=== PATIENT | female | born 1930 | race Hispanic/Latino ===

== ENCOUNTER 2018-10-06 09:42 | Inpatient (IN) | payer OTHER, SELFPAY ==
[2018-10-06] MEDS ORDERED: NA CHLORIDE 0.9% 1,000 ML ONE (10:19)
[2018-10-06] MEDS ORDERED: ONDANSETRON 4 MG/2 ML VIAL ONE (10:19)
[2018-10-06 10:51] LABS: Absolute Lymphocytes (CBC) 0.2 K/uL (0.7-4.9); Absolute Monocytes 0.6 K/uL (0.1-1.3); Absolute Neutrophil 11.4 K/uL (1.8-8.0); Basophils % 0.2 % (0-1.3); Hematocrit 43.2 % (36.0-45.0); Lymphocytes % 1.6 % (15.3-44.8); MPV 12.3 fL (7.6-11.3); Monocytes % 4.8 % (3.3-12.3)
[2018-10-06 11:11] LABS: Albumin 3.9 g/dL (3.4-5.0); Bilirubin Direct 0.3 mg/dL (0-0.2); Bilirubin Total 0.8 mg/dL (0.2-1.0); Potassium 3.1 mmol/L (3.5-5.1); Protein, Total 7.3 g/dL (6.4-8.2)
[2018-10-06 11:44] LABS: Blood Morphology Comment NOT SEEN (NOT SEEN); Platelet Estimate ADEQ
[2018-10-06 11:45] LABS: Platelets, Giant FEW
--- NOTE | 2018-10-06 11:49 | RAD REPORT ---
EXAM DESCRIPTION: CT - Abdomen Pelvis W Contrast - 10/06/2018 11:30 am CLINICAL HISTORY: Abdominal pain, nausea and vomiting for 2 days, prior cholecystectomy, appendectom y, hysterectomy and partial colectomy COMPARISON: None. TECHNIQUE: Biphasic, helical CT imaging of the abdomen and pelvis was performed following 100 ml non -ionic IV contrast. Oral contrast was given. All CT scans are performed using dose optimization technique as appropriate and may include automated exposure control or mA/KV adjustment according to patient size. FINDINGS: No suspicious findings in the lung bases. The liver, spleen, and pancreas show no suspicious findings. Gallbladder is absent. Mild dilatation o f biliary tree within normal limits for a post cholecystectomy patient. Renal function is symmetric. No pyelonephritis, suspicious renal mass or other acute renal parenchyma l process seen. Both renal pelves are dilated. Function is not delayed in these are probably normal v ariant extrarenal pelves or congenital UPJ obstructions. These are not regarded as significant in the acute setting. Ureters do not appear to be dilated. Urinary bladder is distended. Hyperdensity along the left posterior wall of the bladder is probably bladder calculi. Contrast is possible if the heath ent was administered a test dosage. No wall thickening or mass of the bladder. No adrenal abnormaliti es. Fluid-filled nondilated stomach noted. No gastric wall thickening or mass. Multiple dilated small bow el loops are present up to 3.2 cm in diameter. There is an abrupt transition in the posterior floor t he pelvis. At the transition site there is no discrete mass identifiable. Internal hernia or more lik pavan adhesions would be the etiology. Distal to the transition point the small bowel is fully decompre ssed. Air and stool are present throughout the colon. No acute colon process seen. No findings to inocencia vate probability of ischemic bowel. No free air or pneumatosis. Small quantity of reactive free fluid is seen. No bulky lymphadenopathy or suspicious soft tissue mass. Prominent disc and bony degenerative changes are present with right convex rotoscoliosis. IMPRESSION: Mechanical small bowel obstruction pattern with an abrupt transition in the mid small kamilah wel along the posterior pelvic floor. No mass at the transition site. Adhesion would be the most likely etiology. No free air, abscess or surgically emergent finding. Patient does have a small quantity of reactive free intraperitoneal fluid.
--- NOTE | 2018-10-06 12:13 | EDPHYS ---
Physician Documentation [facility] Name: Chintan Chase Age: 88 yrs Sex: Female : 1930 Arrival Date: 10/06/2018 Time: 09:46 Bed 15 Private MD: Out, [facility] ED Physician Elliott Hawkins HPI: 10/06 10:09 This 88 yrs old Female presents to ER via Wheelchair with complaints of Abd Pain > 50 kb y/o, Vomiting. 10:09 The patient presents with abdominal pain that is diffuse. Onset: The symptoms/episode kb began/occurred yesterday. The symptoms do not radiate. Associated signs and symptoms: Pertinent positives: nausea and vomiting, fever, Pertinent negatives: anorexia, blood in stools, chest pain, constipation, diarrhea, dysuria, headache, hematuria, nausea, palpitations, shortness of breath, vaginal discharge, vomiting blood. The symptoms are described as constant. Modifying factors: The symptoms are alleviated by nothing, the symptoms are aggravated by nothing. Severity of pain: At its worst the pain was moderate in the emergency department the pain is unchanged. The patient has experienced a previous episode. The patient has not recently seen a physician. Pt reports diffuse abd pain that started yesterday. Fever yesterday, vomiting this morning. Historical: - Allergies: 10:00 ethylenediamine (bulk); rb1 10:00 sulfamethoxazole (bulk); rb1 - Home Meds: 10:00 diazepam 2 mg Oral tab 1 tab 2 times per day [Active]; cyproheptadine 4 mg Oral tab 1 rb1 tab 2 times per day [Active]; Symbicort 160-4.5 mcg/actuation inhalation HFAA 2 puffs 2 times per day [Active]; 10:00 venlafaxine 37.5 mg oral cp24 1 cap once daily [Active]; celecoxib 100 mg Oral cap 1 rb1 cap once daily [Active]; losartan 25 mg oral tab 1 tab once daily [Active]; - PMHx: 10:02 Diverticulitis; Asthma; Hypertension; High Cholesterol; hb 10:00 COPD; Hyperlipidemia; rb1 - PSHx: 10:02 Cholecystectomy; Appendectomy; Hysterectomy; Partial Colectomy; hb - Immunization history:: Adult Immunizations up to date. - Social history:: Smoking status: Patient/guardian denies using tobacco. - Ebola Screening: : No symptoms or risks identified at this time. ROS: 10:11 ENT: Negative for injury, pain, and discharge, Neck: Negative for injury, pain, and kb swelling, Cardiovascular: Negative for chest pain, palpitations, and edema, Respiratory: Negative for shortness of breath, cough, wheezing, and pleuritic chest pain, MS/Extremity: Negative for injury and deformity, Skin: Negative for injury, rash, and discoloration, Neuro: Negative for headache, weakness, numbness, tingling, and seizure. 10:11 Constitutional: Positive for fever, Negative for body aches, chills, fatigue, malaise, poor PO intake, weight loss. 10:11 Abdomen/GI: Positive for abdominal pain, nausea and vomiting, Negative for diarrhea, constipation. Exam: 10:11 Constitutional: This is a well developed, well nourished patient who is awake, alert, kb and in no acute distress. Head/Face: Normocephalic, atraumatic. ENT: Nares patent. No nasal discharge, no septal abnormalities noted. Tympanic membranes are normal and external auditory canals are clear. Oropharynx with no redness, swelling, or masses, exudates, or evidence of obstruction, uvula midline. Mucous membranes moist. Neck: Trachea midline, no thyromegaly or masses palpated, and no cervical lymphadenopathy. Supple, full range of motion without nuchal rigidity, or vertebral point tenderness. No Meningismus. Chest/axilla: Normal chest wall appearance and motion. Nontender with no deformity. No lesions are appreciated. Cardiovascular: Regular rate and rhythm with a normal S1 and S2. No gallops, murmurs, or rubs. Normal PMI, no JVD. No pulse deficits. Respiratory: Lungs have equal breath sounds bilaterally, clear to auscultation and percussion. No rales, rhonchi or wheezes noted. No increased work of breathing, no retractions or nasal flaring. Skin: Warm, dry with normal turgor. Normal color with no rashes, no lesions, and no evidence of cellulitis. MS/ Extremity: Pulses equal, no cyanosis. Neurovascular intact. Full, normal range of motion. Neuro: Awake and alert, GCS 15, oriented to person, place, time, and situation. Cranial nerves II-XII grossly intact. Motor strength 5/5 in all extremities. Sensory grossly intact. Cerebellar exam normal. Normal gait. 10:11 Abdomen/GI: Inspection: abdomen appears normal, Bowel sounds: normal, in all quadrants, Palpation: soft, in all quadrants, nontender, in the right lower quadrant, mild abdominal tenderness, in the right upper quadrant and left upper quadrant, moderate abdominal tenderness, in the left lower quadrant. Vital Signs: 10:00 BP 163 / 80; Pulse 83; Resp 16; Temp 98.1; Pulse Ox 100% on R/A; Pain 10/10; hb 11:12 BP 147 / 62; Pulse 78; Resp 22; Temp 97.7; Pulse Ox 100% ; hs1 12:10 BP 147 / 87; Pulse 86; Resp 20; Pulse Ox 100% on R/A; rb1 12:30 BP 147 / 87; Pulse 82; Resp 20; Temp 97.7; Pulse Ox 100% ; hs1 13:30 BP 156 / 76; Pulse 86; Resp 19; Pulse Ox 99% on R/A; rb1 14:20 BP 156 / 78; Pulse 84; Resp 20; Pulse Ox 100% on R/A; rb1 MDM: 10:01 Patient medically screened. kb 10:10 Data reviewed: vital signs, nurses notes. Data interpreted: Pulse oximetry: on room air kb is 100 %. Interpretation: normal. 12:08 Counseling: I had a detailed discussion with the patient and/or guardian regarding: the kb historical points, exam findings, and any diagnostic results supporting the discharge/admit diagnosis, lab results, radiology results, the need for further work-up and treatment in the hospital. Physician consultation: Antonio Chase MD was contacted at 12:08, regarding consult, patient's condition, and will see patient in inpatient room. 12:08 Physician consultation: Brianna Gregg MD was contacted at 12:11, regarding admission, kb to the medical/surgical unit. patient's condition, and will see patient in ED, shortly. 10/06 10:05 Order name: Basic Metabolic Panel; Complete Time: 11:23 kb 10/06 10:05 Order name: CBC with Diff; Complete Time: 11:48 kb 10/06 10:05 Order name: Hepatic Function; Complete Time: 11:23 kb 10/06 10:05 Order name: Lipase; Complete Time: 11:23 kb 10/06 10:06 Order name: CT Abd/Pelvis - W/Contrast; Complete Time: 11:53 kb 10/06 11:44 Order name: Manual Differential; Complete Time: 11:48 EDMD 10/06 10:05 Order name: IV Saline Lock; Complete Time: 10:47 kb 10/06 12:14 Order name: CONS Physician Consult EDMD 10/06 10:05 Order name: Labs collected and sent; Complete Time: 10:47 kb 10/06 12:08 Order name: NG Tube; Complete Time: 13:36 kb Administered Medications: 10:35 Drug: NS 0.9% 1000 ml Route: IV; Rate: 1000 ml; Site: right forearm; rb1 11:54 Follow up: IV Status: Completed infusion rb1 10:35 Drug: Zofran 4 mg Route: IVP; Site: right forearm; rb1 10:50 Follow up: Response: No adverse reaction; Nausea is decreased rb1 12:15 Drug: morphine 2 mg Route: IVP; Site: right forearm; rb1 12:30 Follow up: Response: No adverse reaction; Pain is decreased rb1 12:15 Drug: Flagyl 500 mg Volume: 100 ml; Route: IVPB; Rate: 200 ml/hr; Infused Over: 30 rb1 mins; Site: left antecubital; 13:18 Follow up: Response: No adverse reaction; IV Status: Completed infusion rb1 12:18 Drug: NS 0.9% with KCl 20 mEq/L 1000 ml Route: IV; Rate: 100 ml/hr; Site: right forearm;rb1 14:27 Follow up: IV Status: Infusion continued upon admission rb1 13:20 Drug: Cipro 400 mg Volume: 200 ml; Route: IVPB; Infused Over: 60 mins; Site: left rb1 antecubital; 14:27 Follow up: Response: No adverse reaction; IV Status: Infusion continued upon admission rb1 Disposition: 10/07 07:20 Co-signature as Attending Physician, Elliott Hawkins MD I agree with the assessment and kdr plan of care. Disposition: 10/06/18 12:12 Hospitalization ordered by Brianna Gregg for Inpatient Admission. Preliminary diagnosis is Small Bowel Obstruction. - Bed requested for Telemetry/MedSurg (Inpatient). - Status is Inpatient Admission. rb1 - Condition is Stable. - Problem is new. - Symptoms are unchanged. UTI on Admission? No Signatures: Dispatcher [employer] EDMD Richelle Wiseman FNP-C WORM PACKER-Ckb Chelsea Barrios, RN RN dw Elliott Hawkins MD MD [facility] Linn Roberts, RN RN rb1 Angelica Acosta, MELODY RN Corrections: (The following items were deleted from the chart) 10/06 12:09 10:02 Allergies: No Known Allergies; rb1 12:51 12:12 Hospitalization Ordered by Brianna Gregg MD for Inpatient Admission. Preliminary dw diagnosis is Small Bowel Obstruction. Bed requested for Telemetry/MedSurg (Inpatient). Status is Inpatient Admission. Condition is Stable. Problem is new. Symptoms are unchanged. UTI on Admission? No. kb 14:27 12:51 10/06/2018 12:12 Hospitalization Ordered by Brianna Gregg MD for Inpatient rb1 Admission. Preliminary diagnosis is Small Bowel Obstruction. Bed requested for Telemetry/MedSurg (Inpatient). Status is Inpatient Admission. Condition is Stable. Problem is new. Symptoms are unchanged. UTI on Admission? No. dw
--- NOTE | 2018-10-06 12:13 | ER ---
Nurse's Notes [facility] Name: Chintan Chase Age: 88 yrs Sex: Female : 1930 Arrival Date: 10/06/2018 Time: 09:46 Bed 15 Private MD: Out, [facility] Diagnosis: Small Bowel Obstruction Presentation: 10/06 09:55 Initial Sepsis Screen: Does the patient meet any 2 criteria? No. Patient's initial rb1 sepsis screen is negative. Does the patient have a suspected source of infection? No. Patient's initial sepsis screen is negative. 10:00 Presenting complaint: N/V/D and upper abdominal pain 10 x 2 days. Transition of hb care: patient was not received from another setting of care. Onset of symptoms was October 05, 2018. Risk Assessment: Do you want to hurt yourself or someone else? Patient reports no desire to harm self or others. Care prior to arrival: None. 10:00 Method Of Arrival: Wheelchair hb 10:00 Acuity: MALOU 3 hb Historical: - Allergies: 10:00 ethylenediamine (bulk); rb1 10:00 sulfamethoxazole (bulk); rb1 - Home Meds: 10:00 diazepam 2 mg Oral tab 1 tab 2 times per day [Active]; cyproheptadine 4 mg Oral tab 1 rb1 tab 2 times per day [Active]; Symbicort 160-4.5 mcg/actuation inhalation HFAA 2 puffs 2 times per day [Active]; 10:00 venlafaxine 37.5 mg oral cp24 1 cap once daily [Active]; celecoxib 100 mg Oral cap 1 rb1 cap once daily [Active]; losartan 25 mg oral tab 1 tab once daily [Active]; - PMHx: 10:02 Diverticulitis; Asthma; Hypertension; High Cholesterol; hb 10:00 COPD; Hyperlipidemia; rb1 - PSHx: 10:02 Cholecystectomy; Appendectomy; Hysterectomy; Partial Colectomy; hb - Immunization history:: Adult Immunizations up to date. - Social history:: Smoking status: Patient/guardian denies using tobacco. - Ebola Screening: : No symptoms or risks identified at this time. Screenin:02 Abuse screen: Denies threats or abuse. Denies injuries from another. Nutritional hb screening: No deficits noted. Tuberculosis screening: No symptoms or risk factors identified. Fall Risk Total Hagen Fall Scale indicates Low Risk Score (25-44 pts). Fall prevention measures have been instituted. Side Rails Up X 2 Frequent Obs/Assesments occuring Family Present and informed to notify staff if they need to leave bedside As available Patient and Family Educated on Fall Prevention Program and strategies. Assessment: 09:55 General: Appears in no apparent distress. comfortable, Behavior is calm, cooperative. rb1 Pain: Complains of pain in left upper quadrant and left lower quadrant Pain currently is 10 out of 10 on a pain scale. Neuro: Level of Consciousness is awake, alert, obeys commands, Oriented to person, place, time, situation. Cardiovascular: Capillary refill < 3 seconds is brisk in bilateral fingers. Respiratory: Airway is patent Respiratory effort is even, unlabored, Respiratory pattern is regular, symmetrical. GI: Bowel sounds present X 4 quads. Abd is soft Abdomen is tender to palpation in left upper quadrant and left lower quadrant Reports diarrhea, nausea, vomiting. : Reports urinary frequency. Derm: Skin is pink, warm \T\ dry. Musculoskeletal: Range of motion: intact in all extremities. 10:55 Reassessment: Patient appears in no apparent distress at this time. No changes from rb1 previously documented assessment. Daughter at bedside. 11:50 Reassessment: Patient appears in no apparent distress at this time. Patient and/or rb1 family updated on plan of care and expected duration. Pain level reassessed. Patient is alert, oriented x 3, equal unlabored respirations, skin warm/dry/pink. 12:30 Reassessment: Patient appears in no apparent distress at this time. Patient and/or rb1 family updated on plan of care and expected duration. Pain level reassessed. Patient is alert, oriented x 3, equal unlabored respirations, skin warm/dry/pink. Patient states feeling better. 13:30 Reassessment: Patient appears in no apparent distress at this time. No changes from rb1 previously documented assessment. Daughter remains at bedside. 13:50 Reassessment: Tried to call report but was asked to call back. rb1 14:08 Reassessment: Gave report to MELODY Quintanilla. Information from the SBAR was given. All rb1 questions asked and answered. 14:20 Reassessment: Patient appears in no apparent distress at this time. Patient and/or rb1 family updated on plan of care and expected duration. Pain level reassessed. Patient is alert, oriented x 3, equal unlabored respirations, skin warm/dry/pink. Patient states symptoms have improved. Vital Signs: 10:00 BP 163 / 80; Pulse 83; Resp 16; Temp 98.1; Pulse Ox 100% on R/A; Pain 10/10; hb 11:12 BP 147 / 62; Pulse 78; Resp 22; Temp 97.7; Pulse Ox 100% ; hs1 12:10 BP 147 / 87; Pulse 86; Resp 20; Pulse Ox 100% on R/A; rb1 12:30 BP 147 / 87; Pulse 82; Resp 20; Temp 97.7; Pulse Ox 100% ; hs1 13:30 BP 156 / 76; Pulse 86; Resp 19; Pulse Ox 99% on R/A; rb1 14:20 BP 156 / 78; Pulse 84; Resp 20; Pulse Ox 100% on R/A; rb1 ED Course: 09:46 Patient arrived in ED. sb2 09:47 Out, [facility] is Private Physician. sb2 09:55 Patient has correct armband on for positive identification. Bed in low position. Call rb1 light in reach. Side rails up X 1. Pulse ox on. NIBP on. Warm blanket given. 10:01 Richelle Wiseman FNP-C is PHCP. kb 10:01 Elliott Hawkins MD is Attending Physician. kb 10:01 Triage completed. hb 10:02 Arm band placed on. hb 10:03 Linn Roberts, RN is Primary Nurse. rb1 10:28 Inserted saline lock: 22 gauge in right forearm, using aseptic technique. Blood aj collected. 11:29 CT completed. Patient tolerated procedure well. Patient moved to CT via stretcher. [id number] Patient moved back from CT. 11:31 CT Abd/Pelvis - W/Contrast In Process Unspecified. EDMS 12:12 Brianna Gregg MD is Hospitalizing Provider. kb 12:39 Inserted saline lock: 20 gauge in left antecubital area, using aseptic technique. Blood mh5 collected. 12:55 NGT: inserted 18 Fr. other I attempted to insert the NG tube in each nostril and met rb1 resistance, could not get the tube to advance. I asked for assistance from PRAKASH Dominguez. 13:10 NGT: inserted 16 Fr. via right nare. other Inserted by Angelica, CN. rb1 14:27 No provider procedures requiring assistance completed. Patient admitted, IV remains in rb1 place. Administered Medications: 10:35 Drug: NS 0.9% 1000 ml Route: IV; Rate: 1000 ml; Site: right forearm; rb1 11:54 Follow up: IV Status: Completed infusion rb1 10:35 Drug: Zofran 4 mg Route: IVP; Site: right forearm; rb1 10:50 Follow up: Response: No adverse reaction; Nausea is decreased rb1 12:15 Drug: morphine 2 mg Route: IVP; Site: right forearm; rb1 12:30 Follow up: Response: No adverse reaction; Pain is decreased rb1 12:15 Drug: Flagyl 500 mg Volume: 100 ml; Route: IVPB; Rate: 200 ml/hr; Infused Over: 30 rb1 mins; Site: left antecubital; 13:18 Follow up: Response: No adverse reaction; IV Status: Completed infusion rb1 12:18 Drug: NS 0.9% with KCl 20 mEq/L 1000 ml Route: IV; Rate: 100 ml/hr; Site: right forearm;rb1 14:27 Follow up: IV Status: Infusion continued upon admission rb1 13:20 Drug: Cipro 400 mg Volume: 200 ml; Route: IVPB; Infused Over: 60 mins; Site: left rb1 antecubital; 14:27 Follow up: Response: No adverse reaction; IV Status: Infusion continued upon admission rb1 Output: 14:26 Gastric: 400ml (NGT); Total: 400ml. aj Outcome: 12:12 Decision to Hospitalize by Provider. kb 14:27 Patient left the ED. rb1 14:27 Admitted to Med/surg accompanied by tech, family with patient, via stretcher, room 231, rb1 with chart, Report called to MELODY Quintanilla 14:27 Condition: stable 14:27 Instructed on the need for admit. Signatures: Dispatcher [employer] EDMS Richelle Wiseman, MARIC FRENCH PROFESSOR-Elsa Greco RN RN aj Linn Roberts, Angelica Wild RN, RN RN hb Martinez, Maria 5 Susan Goodwin2 Elena Davis6 Latha Palmer hs1 Corrections: (The following items were deleted from the chart) 12:09 10:02 Allergies: No Known Allergies; rb1
[2018-10-06] MEDS ORDERED: CIPROFLOXACIN 400mg IV 400 MG/200 ML BAG IV ONE (12:25)
[2018-10-06] MEDS ORDERED: METRONIDAZOLE 500mg IVPB 500 MG/100 ML BAG IV ONE (12:26)
[2018-10-06] MEDS ORDERED: NS KCL 20MEQ 1,000 ML IV SCH (12:30)
[2018-10-06] MEDS ORDERED: NS KCL 20MEQ 0 ML IV ONE (12:39)
[2018-10-06] MEDS ORDERED: MORPHINE 4 MG/ML SYR ONE (12:45)
[2018-10-06] MEDS: NA CHLORIDE 0.9% 1,000 ML IV SCH ×2 (14:49→22:04)
[2018-10-06] MEDS ORDERED: ACETAMINOPHEN 650MG/RECT SUPP PR PRN (14:49)
[2018-10-06] MEDS ORDERED: ONDANSETRON 4 MG/2 ML VIAL IV PRN (14:49)
--- NOTE | 2018-10-06 19:51 | P.HP ---
Certification for Inpatient Patient admitted to: Inpatient With expected LOS: >2 Midnights Practitioner: I am a practitioner with admitting privileges, knowledge of patient current condition, hospital course, and medical plan of care. Services: Services provided to patient in accordance with Admission requirements found in Title 42 Section 412.3 of the Code of Federal Regulations Patient History Date of Service: 10/06/18 Reason for admission: SBO History of Present Illness: Ms Chase is an 88 years old woman with history of multiple abdominal surgeries in the past, came to ED complaining of 2 days history of severe abdominal pain associated with nausea and vomiting. The pain is diffuse, 10/10 of intensity. She denied fever or chills. Last time she had a bowel movement was yesterday. Today, she was not able to pass gas. At arrival, she was afebrile. Lab work remarkable for leukocytosis with bandemia. Patossium level is low as well. CT abd/pelvis shows mechanical small bowel obstruction pattern with an abrupt transition in the mid small bowel along the posterior pelvic floor. Allergies ethylenediamine Allergy (Verified 10/06/18 12:22) UNK sulfamethoxazole Allergy (Verified 10/06/18 12:22) UNK Home Medications: Budesonide/Formoterol Fumarate [Symbicort 160-4.5 Mcg Inhaler] 2 puff .ROUTE BID 10/06/18 Celecoxib 1 tab PO DAILY 10/06/18 Cyproheptadine HCl 4 mg PO BID 10/06/18 Diazepam [Valium] 2 mg PO BID PRN 10/06/18 Losartan Potassium 1 tab PO DAILY 10/06/18 Venlafaxine HCl [Effexor XR] 1 tab PO DAILY 10/06/18 - Past Medical/Surgical History Has patient received pneumonia vaccine in the past: Yes Diabetic: No -: htn -: hyperlipidemia -: nonrheumatic mitral valve prolapse -: radiculopathy -: copd -: back pain/sciatica -: senile purpura -: vertigo -: depression -: hysterectomy -: Cholecystectomy -: Appendectomy -: Partial Colectomy - Family History Family History: Reviewed- Non-Contributory - Social History Smoking Status: Never smoker Alcohol use: No CD- Drugs: No Caffeine use: Yes Place of Residence: Home Review of Systems 10-point ROS is otherwise unremarkable Physical Examination - Vital Signs Temperature: 97.9 F Blood Pressure: 179/76 Pulse: 78 Respirations: 20 Pulse Ox (%): 99 - Physical Exam General: Alert, In no apparent distress HEENT: Atraumatic, PERRLA, Mucous membr. moist/pink, EOMI, Sclerae nonicteric Neck: Supple, 2+ carotid pulse no bruit, No LAD, Without JVD or thyroid abnormality Respiratory: Clear to auscultation bilaterally, Normal air movement Cardiovascular: Regular rate/rhythm, Normal S1 S2 Gastrointestinal: Hypoactive, Distended, Tenderness (diffuse) Musculoskeletal: No tenderness Integumentary: No rashes Neurological: Normal speech, Normal strength at 5/5 x4 extr, Normal tone, Normal affect Lymphatics: No axilla or inguinal lymphadenopathy - Studies Laboratory Data (last 24 hrs) 10/06/18 10:28: WBC 12.2 H, Hgb 14.4, Hct 43.2, Plt Count 154 10/06/18 10:28: Sodium 145, Potassium 3.1 L, BUN 16, Creatinine 0.65, Glucose 146 H, Total Bilirubin 0.8, AST 31, ALT 31, Alkaline Phosphatase 68, Lipase 188 Assessment and Plan - Problems (Diagnosis) (1) SBO (small bowel obstruction) Current Visit: Yes Status: Acute (2) COPD (chronic obstructive pulmonary disease) Current Visit: Yes Status: Acute Qualifiers: COPD type: unspecified COPD Qualified Code(s): J44.9 - Chronic obstructive pulmonary disease, unspecified (3) Dyslipidemia Current Visit: Yes Status: Acute - Plan The patient will be admitted to the hospital due to SBO. Already had placed a NGT, IV fluids, NPO. Family is awaiting evaluation by surgeon, since they are concern about the patient having surgery. Consult Dr Chase. Will start empiric antibiotic coverage. - Advance Directives Does patient have a Living Will: No Does patient have a Durable POA for Healthcare: No - Code Status/Comfort Care Code Status Assessed: Yes Code Status: Full Code
[2018-10-07] MEDS: CIPROFLOXACIN 400mg IV 400 MG/200 ML BAG IV SCH ×2 (00:16→10:44)
[2018-10-07] MEDS: METRONIDAZOLE 500mg IVPB 500 MG/100 ML BAG IV SCH ×3 (00:16→16:24)
[2018-10-07 05:14] LABS: Absolute Lymphocytes (CBC) 0.8 K/uL (0.7-4.9); Absolute Monocytes 1.1 K/uL (0.1-1.3); Absolute Neutrophil 5.3 K/uL (1.8-8.0); Basophils % 0.4 % (0-1.3); Eosinophils % 0.2 % (0-4.4); Hematocrit 39.7 % (36.0-45.0); Lymphocytes % 11.1 % (15.3-44.8); MPV 11.9 fL (7.6-11.3); Monocytes % 14.9 % (3.3-12.3); RBC Red Blood Cell Count 4.36 M/uL (3.86-4.86)
[2018-10-07 05:42] LABS: ALT/SGPT 24 U/L (12-78); AST/SGOT 24 U/L (15-37); Albumin 3.1 g/dL (3.4-5.0); Alkaline Phosphatase 52 U/L (45-117); BUN Blood Urea Nitrogen 13 mg/dL (7-18); Bicarbonate 30 mmol/L (21-32); Bilirubin Total 0.6 mg/dL (0.2-1.0); Glucose Level 104 mg/dL (74-106); Sodium Level 147 mmol/L (136-145)
[2018-10-07 05:43] LABS: Potassium 2.8 mmol/L (3.5-5.1)
[2018-10-07] MEDS: KCL 20 MEQ/100 mL IVPB 20 MEQ/100 ML BAG IV SCH ×5 (06:14→23:18)
[2018-10-07] MEDS ORDERED: HYDRALAZINE HCL 20 MG/ML VIAL IV ONE (09:08)
--- NOTE | 2018-10-07 11:01 | P.PN ---
Subjective Date of Service: 10/07/18 Chief Complaint: SBO Patient seen and examined at bedside with RN. Chart reviewed. Case discussed with general surgery. Currently patient is NPO. Denies passing gas or having a bowel movement. Denies having nausea vomiting however. Review of Systems 10-point ROS is otherwise unremarkable Physical Examination - Vital Signs Temperature: 97.7 F Blood Pressure: 195/74 Pulse: 76 Respirations: 17 Pulse Ox (%): 96 - Physical Exam General: Alert, In no apparent distress, Other (NG tube in place) HEENT: Atraumatic, PERRLA, EOMI Neck: Supple, JVD not distended Respiratory: Clear to auscultation bilaterally, Normal air movement Cardiovascular: Regular rate/rhythm, Normal S1 S2 Gastrointestinal: Normal bowel sounds, Tenderness (Generalized) Musculoskeletal: No tenderness Integumentary: No rashes Neurological: Normal speech, Normal tone, Normal affect Lymphatics: No axilla or inguinal lymphadenopathy - Studies Laboratory Data (last 24 hrs) 10/06/18 10:28: WBC 12.2 H, Hgb 14.4, Hct 43.2, Plt Count 154 10/06/18 10:28: Sodium 145, Potassium 3.1 L, BUN 16, Creatinine 0.65, Glucose 146 H, Total Bilirubin 0.8, AST 31, ALT 31, Alkaline Phosphatase 68, Lipase 188 Medications List Reviewed: Yes Assessment And Plan - Current Problems (Diagnosis) (1) SBO (small bowel obstruction) Current Visit: Yes Status: Acute Plan: Small-bowel obstruction with nausea and vomiting initially. -nausea vomiting now resolved -patient placed on NG tube, NPO and IV fluids at this time -general surgery has been consulted given the past medical history of his colectomy -improving today. Will repeat a KUB at this time. -encourage patient to ambulate at this time. (2) H/O colectomy Current Visit: Yes Status: Chronic Plan: History of colectomy in [place] more than 5 years ago. -Most likely small-bowel obstruction secondary to adhesions versus past surgery (3) COPD (chronic obstructive pulmonary disease) Current Visit: Yes Status: Chronic Qualifiers: COPD type: chronic bronchitis (4) Dyslipidemia Current Visit: Yes Status: Chronic (5) HTN (hypertension) Current Visit: Yes Status: Chronic Qualifiers: Hypertension type: essential hypertension Qualified Code(s): I10 - Essential (primary) hypertension - Plan Pending clinical improvement at this time. Will follow up with general surgery regarding recommendations at this time as well. Discharge Plan: Home Plan to discharge in: 72 Hours - Code Status/Comfort Care Code Status Assessed: Yes Critical Care: No
--- NOTE | 2018-10-07 11:10 | RAD REPORT ---
EXAM DESCRIPTION: RAD - Abdomen 1 View (KUB) - 10/07/2018 10:48 am CLINICAL HISTORY: sbo Pain COMPARISON: Abdomen Pelvis W Contrast dated 10/06/2018 FINDINGS: Multiple dilated small bowel loops are noted in the central abdomen compatible with mechan ical small-bowel obstruction. Nasogastric tube descends into the stomach. A very advanced dextroscoliosis of the lumbar spine is present.
[2018-10-07] MEDS ORDERED: KCL 20 MEQ/100 mL IVPB 20 MEQ/100 ML BAG IV SCH (12:00)
[2018-10-07] MEDS: NA CHLORIDE 0.9% 1,000 ML IV SCH ×2 (12:16→20:43)
--- NOTE | 2018-10-07 18:59 | CON ---
Date of Consultation: 10/07/2018 Diagnosis: Small bowel obstruction. History Of Present Illness: This is the case of an 88-year-old patient with about 2 days history of abdominal bloating and nausea and vomiting x1. The patient was admitted last night for bowel obstruc tion. Today, she feels better. She does not recall much what she ate 2 days ago, although she had s ome vegetables. She has multiple abdominal surgeries for diverticular disease, colectomy, although s he cannot give details, she think it was about 10 years ago. Review of Systems: Unable to be obtained but we will get some information from the family members around the area. Past Medical History: Include hyperlipidemia and hypertension. Allergies: SULFA. Family History: Noncontributory. Physical Examination: General: The patient is awake and alert. No distress. HEENT: Pupils are equal and reactive, anicteric. Neck: Supple. Chest: Clear. Abdomen: Soft and depressible. No guarding, rebound or peritoneal signs. Midline incision intact. Pelvic/Rectal: Deferred. Extremities: Good capillary refill. Laboratory Data: Blood work shows a WBC count of 7.3, coming down from 12. Potassium is 2.8. CAT s can of abdomen and pelvis reviewed, interpreted with Dr. Seymour as small bowel obstruction. Assessment: This is an 88-year-old patient with small bowel obstruction, apparently multiple surgica l interventions in the past. She feels better right now. The abdomen is benign, nondistended. She is having an NG tube in place. We are going to encourage ambulation, still bowel rest. Over the el kend, we are going to ask one of the surgeons in [facility] [address] to watch over her. The family i s aware and if by next 48-72 hours, if we did not see any improvement or clinically she deteriorates, she understand the options of exploratory laparotomy, possible resection, possible ostomy with benef its, alternatives, and risks including, but not limited to infection, bleeding, damage to adjacent st ructures, anesthesia complication, UT, and even . We also have the option if she improve, to do a small bowel series as we want to make sure the obstruction is resolved. So far today, she is not passing any gas, so we are going to continue bowel rest. HM/MODL Voice ID: [id number] Report ID: [id number]
[2018-10-08] MEDS: CIPROFLOXACIN 400mg IV 400 MG/200 ML BAG IV SCH ×3 (00:26→21:58)
[2018-10-08] MEDS: METRONIDAZOLE 500mg IVPB 500 MG/100 ML BAG IV SCH ×3 (00:26→17:00)
[2018-10-08 04:47] LABS: Absolute Lymphocytes (CBC) 0.8 K/uL (0.7-4.9); Absolute Monocytes 0.8 K/uL (0.1-1.3); Basophils % 0.7 % (0-1.3); Eosinophils % 0.7 % (0-4.4); Hematocrit 37.2 % (36.0-45.0); Lymphocytes % 11.5 % (15.3-44.8); MPV 11.4 fL (7.6-11.3); Monocytes % 11.9 % (3.3-12.3); RBC Red Blood Cell Count 4.11 M/uL (3.86-4.86)
[2018-10-08 05:01] LABS: ALT/SGPT 21 U/L (12-78); AST/SGOT 23 U/L (15-37); Albumin 3.1 g/dL (3.4-5.0); Alkaline Phosphatase 47 U/L (45-117); BUN Blood Urea Nitrogen 11 mg/dL (7-18); Bicarbonate 28 mmol/L (21-32); Bilirubin Total 0.6 mg/dL (0.2-1.0); Glucose Level 114 mg/dL (74-106); Potassium 3.1 mmol/L (3.5-5.1); Sodium Level 144 mmol/L (136-145)
[2018-10-08 06:07] LABS: Urine Appearance CLEAR; Urine Bilirubin NEGATIVE (NEG); Urine Blood NEGATIVE (NEG); Urine Color YELLOW; Urine Glucose NEGATIVE (NEG); Urine Protein NEGATIVE (NEG); Urine Specific Gravity 1.015 (1.005-1.030); Urine Urobilinogen 0.2 mg/dL (0.2-1.0)
[2018-10-08 06:08] LABS: Urine Microscopic Reflex NO UMIC
[2018-10-08] MEDS: NA CHLORIDE 0.9% 1,000 ML IV SCH ×2 (06:24→16:49)
[2018-10-08] MEDS: KCL 20 MEQ/100 mL IVPB 20 MEQ/100 ML BAG IV SCH ×3 (06:24→23:19)
[2018-10-08] MEDS: LOSARTAN POTASSIUM 50 MG TABLET PO SCH (09:00)
[2018-10-08] MEDS ORDERED: HYDRALAZINE HCL 20 MG/ML VIAL IV ONE (12:30)
--- NOTE | 2018-10-08 17:58 | P.PN ---
Subjective Date of Service: 10/08/18 Chief Complaint: SBO Patient seen and examined at bedside with RN. Chart reviewed. Case discussed with general surgery. Currently patient is NPO. Denies passing gas or having a bowel movement. Denies having nausea vomiting however. Review of Systems 10-point ROS is otherwise unremarkable Physical Examination - Vital Signs Temperature: 98.6 F Blood Pressure: 153/69 Pulse: 74 Respirations: 18 Pulse Ox (%): 100 - Physical Exam General: Alert, In no apparent distress, Other (NPO with NG tube in place) HEENT: Atraumatic, PERRLA, EOMI Neck: Supple, JVD not distended Respiratory: Clear to auscultation bilaterally, Normal air movement Cardiovascular: Regular rate/rhythm, Normal S1 S2 Gastrointestinal: Normal bowel sounds, No tenderness Musculoskeletal: No tenderness Integumentary: No rashes Neurological: Normal speech, Normal tone, Normal affect Lymphatics: No axilla or inguinal lymphadenopathy - Studies Medications List Reviewed: Yes Assessment And Plan - Current Problems (Diagnosis) (1) SBO (small bowel obstruction) Current Visit: Yes Status: Acute Plan: Small-bowel obstruction with nausea and vomiting initially. -nausea vomiting now resolved. Improving today -patient placed on NG tube, NPO and IV fluids at this time -general surgery has been consulted given the past medical history of his colectomy -Pending KUB today. Will attempt to do Abdominal Series rick if passing gas -encourage patient to ambulate at this time. (2) H/O colectomy Current Visit: Yes Status: Chronic Plan: History of colectomy in [place] more than 5 years ago. -Most likely small-bowel obstruction secondary to adhesions versus past surgery (3) COPD (chronic obstructive pulmonary disease) Current Visit: Yes Status: Chronic Qualifiers: COPD type: chronic bronchitis (4) Dyslipidemia Current Visit: Yes Status: Chronic (5) HTN (hypertension) Current Visit: Yes Status: Chronic Qualifiers: Hypertension type: essential hypertension Qualified Code(s): I10 - Essential (primary) hypertension - Plan Pending clinical improvement at this time. Discharge Plan: Home Plan to discharge in: 48 Hours - Code Status/Comfort Care Code Status Assessed: Yes Critical Care: No
--- NOTE | 2018-10-08 20:15 | RAD REPORT ---
EXAM DESCRIPTION: RAD - Abdomen 1 View (KUB) - 10/08/2018 7:16 pm CLINICAL HISTORY: Abdomen pain. FINDINGS: A nasogastric tube is present within the stomach Moderately dilated loops of small bowel are without significant change from October 07, 2018. Air with in the colon is diminished. This is compatible with a mechanical small bowel obstruction
[2018-10-09] MEDS: METRONIDAZOLE 500mg IVPB 500 MG/100 ML BAG IV SCH ×3 (01:02→17:00)
[2018-10-09] MEDS: NA CHLORIDE 0.9% 1,000 ML IV SCH ×3 (02:49→12:49)
[2018-10-09] MEDS: KCL 20 MEQ/100 mL IVPB 20 MEQ/100 ML BAG IV SCH ×4 (03:13→21:26)
[2018-10-09 06:20] LABS: Absolute Lymphocytes (CBC) 0.7 K/uL (0.7-4.9); Absolute Monocytes 1.1 K/uL (0.1-1.3); Absolute Neutrophil 5.6 K/uL (1.8-8.0); Basophils % 0.4 % (0-1.3); Eosinophils % 0.6 % (0-4.4); Hematocrit 38.8 % (36.0-45.0); Lymphocytes % 9.5 % (15.3-44.8); MPV 12.1 fL (7.6-11.3); Monocytes % 14.3 % (3.3-12.3); RBC Red Blood Cell Count 4.25 M/uL (3.86-4.86)
[2018-10-09 06:39] LABS: ALT/SGPT 19 U/L (12-78); AST/SGOT 20 U/L (15-37); Albumin 2.9 g/dL (3.4-5.0); Alkaline Phosphatase 44 U/L (45-117); BUN Blood Urea Nitrogen 12 mg/dL (7-18); Bicarbonate 25 mmol/L (21-32); Bilirubin Total 0.7 mg/dL (0.2-1.0); Glucose Level 84 mg/dL (74-106); Potassium 3.2 mmol/L (3.5-5.1); Protein, Total 5.6 g/dL (6.4-8.2); Sodium Level 143 mmol/L (136-145)
[2018-10-09] MEDS: LOSARTAN POTASSIUM 50 MG TABLET PO SCH (09:00)
[2018-10-09] MEDS: CIPROFLOXACIN 400mg IV 400 MG/200 ML BAG IV SCH ×2 (10:33→21:28)
--- NOTE | 2018-10-09 12:23 | P.PN ---
Subjective Date of Service: 10/09/18 Chief Complaint: SBO Patient seen and examined at bedside with RN. Chart reviewed. Case discussed with general surgery. Currently patient is NPO. Denies passing gas or having a bowel movement. Denies having nausea vomiting however. Review of Systems 10-point ROS is otherwise unremarkable Physical Examination - Vital Signs Temperature: 99.4 F Blood Pressure: 146/68 Pulse: 81 Respirations: 16 Pulse Ox (%): 100 - Physical Exam General: Alert, In no apparent distress HEENT: Atraumatic, PERRLA, EOMI Neck: Supple, JVD not distended Respiratory: Clear to auscultation bilaterally, Normal air movement Cardiovascular: Regular rate/rhythm, Normal S1 S2 Gastrointestinal: Normal bowel sounds, Hypoactive, No tenderness Musculoskeletal: No tenderness Integumentary: No rashes Neurological: Normal speech, Normal tone, Normal affect Lymphatics: No axilla or inguinal lymphadenopathy - Studies Medications List Reviewed: Yes Assessment And Plan - Current Problems (Diagnosis) (1) SBO (small bowel obstruction) Current Visit: Yes Status: Acute Plan: Small-bowel obstruction with nausea and vomiting initially. -nausea vomiting now resolved. But still not passing gas. -patient placed on NG tube, NPO and IV fluids at this time -general surgery has been consulted given the past medical history of his colectomy -Pending KUB today. Depending on the results will f.u with Surgery -encourage patient to ambulate at this time. (2) H/O colectomy Current Visit: Yes Status: Chronic Plan: History of colectomy in [place] more than 5 years ago. -Most likely small-bowel obstruction secondary to adhesions versus past surgery (3) COPD (chronic obstructive pulmonary disease) Current Visit: Yes Status: Chronic Qualifiers: COPD type: chronic bronchitis (4) Dyslipidemia Current Visit: Yes Status: Chronic (5) HTN (hypertension) Current Visit: Yes Status: Chronic Qualifiers: Hypertension type: essential hypertension Qualified Code(s): I10 - Essential (primary) hypertension - Plan Pending clinical improvement at this time. Discharge Plan: Home Plan to discharge in: 72 Hours - Code Status/Comfort Care Code Status Assessed: Yes Critical Care: No
--- NOTE | 2018-10-09 13:35 | P.PN ---
Subjective Date of Service: 10/09/18 Chief Complaint: SBO Subjective: No new changes (Patient states she feels better, but still has no bowel function.) Physical Examination - Vital Signs Temperature: 99.4 F Blood Pressure: 146/68 Pulse: 81 Respirations: 16 Pulse Ox (%): 100 - Physical Exam General: Alert, In no apparent distress, Cooperative Gastrointestinal: Other (soft, minimal distention, minimal tenderness to palpation, no peritoneal signs, no rebound, no guarding, well healed scars evident. small ventral hernia) - Studies Medications List Reviewed: Yes Assessment And Plan - Current Problems (Diagnosis) (1) SBO (small bowel obstruction) Current Visit: Yes Status: Acute Plan: - continue medical management - NG tube was not functioning due to tubing, now resolved - serial exams - small bowel series - Dr. Chase will return tomorrow to evaluate patient. - no need for emergency surgical intervention at this time.
--- NOTE | 2018-10-09 17:33 | RAD REPORT ---
EXAM DESCRIPTION: RAD - Abdomen 1 View (KUB) - 10/09/2018 5:27 pm CLINICAL HISTORY: SBO Pain COMPARISON: Abdomen 1 View (KUB) dated 10/08/2018; Abdomen 1 View (KUB) dated 10/07/2018 FINDINGS: Dilated and organized loops of small bowel loops in the central abdomen again seen, essent ially unchanged since comparative study. Enteric tube descends into the stomach. Advanced dextroscoliosis of the lumbar spine is seen. IMPRESSION: Stable SBO pattern is noted. Enteric tube is in the stomach.
[2018-10-09] MEDS: PHENOL 1.4% ORAL SPRAY 180ML MM PRN (21:29)
[2018-10-10] MEDS: NA CHLORIDE 0.9% 1,000 ML IV SCH ×3 (00:51→21:55)
[2018-10-10] MEDS: METRONIDAZOLE 500mg IVPB 500 MG/100 ML BAG IV SCH ×3 (00:51→19:03)
[2018-10-10] MEDS ORDERED: KCL 20 MEQ/100 mL IVPB 20 MEQ/100 ML BAG IV SCH (02:00)
[2018-10-10 06:42] LABS: BUN Blood Urea Nitrogen 10 mg/dL (7-18); Bicarbonate 25 mmol/L (21-32); Glucose Level 86 mg/dL (74-106); Potassium 3.4 mmol/L (3.5-5.1); Sodium Level 143 mmol/L (136-145)
[2018-10-10] MEDS: LOSARTAN POTASSIUM 50 MG TABLET PO SCH ×2 (08:37→08:41)
[2018-10-10] MEDS ORDERED: CIPROFLOXACIN 400mg IV 400 MG/200 ML BAG IV ONE (10:30)
[2018-10-10] MEDS ORDERED: PROPOFOL 200 MG/20 ML VIAL IV ONE (10:34)
[2018-10-10] MEDS ORDERED: FENTANYL CITR 100 MCG/2 ML ONE (10:34)
[2018-10-10] MEDS ORDERED: MIDAZOLAM HCL 2 MG/2 ML INJ ONE (10:35)
[2018-10-10] MEDS ORDERED: LIDOCAINE 2% MPF 5 ML VIAL ONE (10:35)
[2018-10-10] MEDS ORDERED: ONDANSETRON 4 MG/2 ML VIAL ONE (10:36)
[2018-10-10] MEDS ORDERED: ROCURONIUM 50 MG/5 ML VIAL IV ONE (10:36)
[2018-10-10] MEDS: CIPROFLOXACIN 400mg IV 400 MG/200 ML BAG IV SCH (10:38)
[2018-10-10] MEDS: Ringers Lactate 1,000 ML IV ONE ×2 (11:25→11:45)
[2018-10-10] MEDS ORDERED: GLYCOPYRROLATE 0.2 MG/ML SYR ONE ×2 (12:03)
[2018-10-10] MEDS ORDERED: NEOSTIGMINE 1 MG/ML -5 ML SYRINGE ONE (12:03)
--- NOTE | 2018-10-10 12:05 | P.BOP ---
Preoperative diagnosis: SBO Postoperative diagnosis: same Primary procedure: 1. Exploratory laparotomy, 2. Extensive lysis of adhesions, Secondary procedure: 3. Small bowel resection with anastomosis Estimated blood loss: <50cc Specimen: SB Findings: as above Anesthesia: General Complications: None Transferred to: Recovery Room Condition: Fair
[2018-10-10] MEDS: MEPERIDINE HCL 50 MG/ML AMP ONE ×2 (12:25→12:32)
--- NOTE | 2018-10-10 12:52 | EKG ---
Test Date: 2018-10-10 Test Time: 07:58:22 Casing Blower: DOMINIC MEASUREMENT RESULTS: Intervals: Rate: 74 OK: 136 QRSD: 70 QT: 414 QTc: 459 [place]: P: 80 OK: 136 QRS: 81 T: 65 INTERPRETIVE STATEMENTS: Normal sinus rhythm Normal ECG No previous ECG available for comparison Electronically Signed On 10-10-18 12:51:27 AUTOMATIC DEVELOPER by [place]
--- NOTE | 2018-10-10 13:30 | CON ---
Date of Consultation: 10/10/2018 Reason For Consult: Preoperative clearance. History Of Present Illness: Mrs. Chase has been in our hospital since the 06 of October. It is now 7th. She is here with small bowel obstruction, and after an appropriate period of time, it was h oped that her obstruction would relieve, but it is still present, so Dr. Chase has recommended sohan to, a laparotomy, maybe laparoscopy, lysis of adhesions and hopefully relief of small bowel obstruc tion. The patient does not have a history of heart disease. A physician gave her nitroglycerin to erwin tompkins, but she has not used it in a year. She has never had a heart catheterization, stroke, myocardia l infarction, stent, or bypass surgery. She uses no tobacco for the last 20 years, does not have rachel betes. Home medications had been Effexor, celecoxib, cyproheptadine, Symbicort, diazepam, and losart an 25 mg. She is treated for depression, anxiety, mild dementia, and hypertension. She denies havin g chest pain. She has abdominal pain, anorexia. She is on NG suction for the past 5 days. Physical Examination: Vital Signs: Five feet and 8 inches, 92 pounds, very much underweight to cachectic. HEENT: Unremarkable. Lungs: No crackles or wheeze. Heart: Within normal limits. Abdomen: Soft. Extremities: Normal. Normal pulses. Diagnostic Studies: Her EKG is normal done today on October 10, 2018. Impression: The patient is an acceptable low risk for going through general anesthesia, laparoscopy or laparotomy to treat small bowel obstruction. JONNA/LEANDRO Voice ID: [id number] Report ID: [id number]
[2018-10-10] MEDS: KCL 20 MEQ/100 mL IVPB 20 MEQ/100 ML BAG IV SCH ×3 (14:08→18:18)
--- NOTE | 2018-10-10 14:23 | P.PN ---
Subjective Date of Service: 10/10/18 Chief Complaint: SBO Patient seen and examined at bedside with RN. Chart reviewed. Case discussed with general surgery. Currently patient is NPO. Scheduled for surgery with general surgery this morning. Doing well overall. Review of Systems 10-point ROS is otherwise unremarkable Physical Examination - Vital Signs Temperature: 97.1 F Blood Pressure: 165/47 Pulse: 78 Respirations: 20 Pulse Ox (%): 100 - Physical Exam General: Alert, In no apparent distress, Other (NG tube in place) HEENT: Atraumatic, PERRLA, EOMI Neck: Supple, JVD not distended Respiratory: Clear to auscultation bilaterally, Normal air movement Cardiovascular: Regular rate/rhythm, Normal S1 S2 Gastrointestinal: Normal bowel sounds, No tenderness Musculoskeletal: No tenderness Integumentary: No rashes Neurological: Normal speech, Normal tone, Normal affect Lymphatics: No axilla or inguinal lymphadenopathy - Studies Medications List Reviewed: Yes Assessment And Plan - Current Problems (Diagnosis) (1) SBO (small bowel obstruction) Current Visit: Yes Status: Acute Plan: Small-bowel obstruction with nausea and vomiting initially. -KUB was still consistent with small-bowel obstruction. Patient has not been able to pass flatulence at this time. -patient placed on NG tube, NPO and IV fluids at this time -general surgery has been consulted given the past medical history of his colectomy -scheduled for OR procedure today. Will followup post procedure (2) H/O colectomy Current Visit: Yes Status: Chronic Plan: History of colectomy in [place] more than 5 years ago. -Most likely small-bowel obstruction secondary to adhesions versus past surgery (3) COPD (chronic obstructive pulmonary disease) Current Visit: Yes Status: Chronic Qualifiers: COPD type: chronic bronchitis (4) Dyslipidemia Current Visit: Yes Status: Chronic (5) HTN (hypertension) Current Visit: Yes Status: Chronic Qualifiers: Hypertension type: essential hypertension Qualified Code(s): I10 - Essential (primary) hypertension - Plan Patient pending clinical improvement at this time. Will followup post procedure today. Has gone cardiac clearance for surgery with a history of mitral valve prolapse. Discharge Plan: Other Plan to discharge in: 72 Hours - Code Status/Comfort Care Code Status Assessed: Yes Critical Care: No
--- NOTE | 2018-10-10 15:36 | PN ---
Date of Progress Note: 10/09/2018 Diagnosis: Small bowel obstruction. Subjective: Patient is awake, alert. She is still passing no flatus. With nausea, no vomiting. Th e patient has abdominal distention. Physical Examination: General: The patient is awake, alert. HEENT: Pupils are equal and reactive, anicteric. Neck: Supple. Chest: Clear. Abdomen: Soft, but distended. Rectal: Deferred. Extremities: Good capillary refill. Laboratory Data: Blood work shows WBC count of 7.5, hemoglobin 13.2, platelets of 117. Potassium of 2.8, being replaced. KUB still showing apparently a small bowel obstruction. Assessment: This is an 88-year-old patient with small bowel obstruction. I talked to the patient ab out the last 48 hours. Tonight, the family members are stable at bedside and we discussed with them that the patient has not improved and we offered them once again laparotomy, possible bowel resection , possible ostomy with benefits, alternatives, and risks including but not limited to infection, blee ding, damage to adjacent structures, anesthesia complications, myocardial infarction, and even . They also understand this may not relieve any symptoms. She might need more than one surgical inte rvention. We do not have all the information. She is visiting from [place] with multiple surgerie s done in that area. She mentioned the best she can and there is no other explanation of the previou s surgeries other than diverticulitis and other surgeries. We are giving contrast for small bowel se ray may cause aspiration. We have KUB still showing bowel obstruction and no flatus, so she did sig n a consent for the above procedure that was proposed. We requested Cardiology clearance for this patient, that is still pending. Once we have t hat, we will proceed. ARMANDO/LEANDRO Voice ID: [id number] Report ID: [id number]
[2018-10-10] MEDS: MORPHINE 4 MG/ML SYR IV PRN ×2 (16:11→20:14)
--- NOTE | 2018-10-10 23:09 | OP ---
Date of Procedure: 10/06/2018 Surgeon: Antonio Chase MD Preoperative Diagnosis: Obstruction. Postoperative Diagnosis: Obstruction. Procedures: Exploratory laparotomy, extensive intraabdominal lysis of adhesions, and small-bowel res ection and anastomosis. Estimated Blood Loss: Less than 50 cc. Anesthesia: General. Specimen: Small bowel. Findings: The patient has multiple extensive adhesions inside abdomen with kink of the small bowel c ausing bowel obstruction. The area of the kink looked like it has some chronic stricture. For that reason, it was resected. Assessment: This is an 88-year-old patient visiting from [place], comes with small-bowel obstructi on. Conservative treatment did not improve her condition. Today, she gave us consent for laparotomy , possible bowel resection, possible ostomy with benefits, alternatives, and risks included but not l imited to infection, bleeding, damage to adjacent structures, anesthesia complication, MS, and even d eath. She also understands this may not relieve any symptoms. She might need more than one surgical intervention. She understood and signed a consent. Description Of Procedure: The patient was brought to the operating room, placed in supine position. Anesthesia was done without complication. A time-out was called. Abdomen was prepped and draped in sterile fashion. A midline incision was made. The patient has multiple incisions on the mid abdome n. So, carefully, we had to go down to the fascia and then enter the peritoneum carefully since the patient has multiple adhesions of small bowel against the anterior abdominal wall. This was a long p rocess of doing the lysis of adhesions, and we were able to find an access to the abdominal cavity. Once again, a lot of adhesions inside from multiple surgeries. We took a significant amount of time on this, about 45 minutes, just to do the of adhesions. Once the lysis of adhesions was done using L igaSure, we checked for hemostasis at all times. We noticed that in all this process, several bands of scar tissue causing the kink of the small bowel with obvious transition point. Once that released , we noticed the bowel start to gain a shape, and the area was dilated, and area was collapsed much i n each other, although there was a stricture of the area of the scar tissue present there, which was not allowing free flow. So, we proceeded to remove that segment of the bowel. We obtained proximal and distal control. We put a hemostat in mesentery, transected proximal and distal with a SALIMA 55. T hen, after that, we removed the small bowel with the help of LigaSure. No bleeding. We put the prox imal and distal ends together. We put a silk at the end of the soon-to-be anastomosis, created 2 ent erotomies, put a SALIMA 55 to each one of them, and fired to create the anastomosis. Then, after that, we closed the enterotomies with TA 55. Excellent anastomosis in between, good bowel color, and no le akage. The mesentery was approximated with chromic. The small bowel was sent for an evaluation and biopsy. The area was irrigated profusely. The areas of the previous lysis of adhesions were reviewe d. There was not any bleeding. No enterotomies. The area was put back in order to make sure there was no kink and then omentum over the area. Irrigated the abdomen profusely. Checked instrument and sponge count correct. Also, the NG tube was in the stomach. At that moment, I proceeded to close t he abdomen with #2 nylon in running fashion and then after that, laura in the skin. Sponge count a nd instrument counts were correct. The patient tolerated the procedure well. The patient was sent t o recovery in stable condition. The patient will be going to the ICU as previously discussed with me , the medical staff, and the ring spinner. SHIRA Voice ID: [id number] Report ID: [id number]
[2018-10-11] MEDS: CIPROFLOXACIN 400mg IV 400 MG/200 ML BAG IV SCH ×3 (00:43→23:23)
[2018-10-11] MEDS: MORPHINE 4 MG/ML SYR IV PRN ×3 (01:00→12:58)
[2018-10-11] MEDS: METRONIDAZOLE 500mg IVPB 500 MG/100 ML BAG IV SCH ×3 (03:35→16:25)
[2018-10-11] MEDS: NA CHLORIDE 0.9% 1,000 ML IV SCH (05:58)
[2018-10-11 08:39] LABS: BUN Blood Urea Nitrogen 13 mg/dL (7-18); Bicarbonate 24 mmol/L (21-32); Glucose Level 128 mg/dL (74-106); Potassium 3.9 mmol/L (3.5-5.1); Sodium Level 142 mmol/L (136-145)
[2018-10-11] MEDS: LOSARTAN POTASSIUM 50 MG TABLET PO SCH (08:59)
--- NOTE | 2018-10-11 12:21 | P.PN ---
Subjective Date of Service: 10/11/18 Chief Complaint: SBO Patient seen and examined at bedside with RN. Chart reviewed. Case discussed with general surgery. Currently patient is NPO. Status post colon resection with adhesion lysis. Doing well overall. No complaints to offer overnight. NG tube in place. Drainage to a antiseizure over 24 hr. Review of Systems 10-point ROS is otherwise unremarkable Physical Examination - Vital Signs Temperature: 98.5 F Blood Pressure: 161/63 Pulse: 95 Respirations: 14 Pulse Ox (%): 99 - Physical Exam General: Alert, In no apparent distress HEENT: Atraumatic, PERRLA, EOMI Neck: Supple, JVD not distended Respiratory: Clear to auscultation bilaterally, Normal air movement Cardiovascular: Regular rate/rhythm, Normal S1 S2 Gastrointestinal: Normal bowel sounds, Tenderness Musculoskeletal: No tenderness Integumentary: No rashes Neurological: Normal speech, Normal tone, Normal affect Lymphatics: No axilla or inguinal lymphadenopathy - Studies Medications List Reviewed: Yes Assessment And Plan - Current Problems (Diagnosis) (1) SBO (small bowel obstruction) Current Visit: Yes Status: Acute Plan: Small-bowel obstruction with nausea and vomiting initially. - (2) H/O colectomy Current Visit: Yes Status: Chronic Plan: History of colectomy in [place] more than 5 years ago. -Most likely small-bowel obstruction secondary to adhesions versus past surgery (3) COPD (chronic obstructive pulmonary disease) Current Visit: Yes Status: Chronic Qualifiers: COPD type: chronic bronchitis (4) Dyslipidemia Current Visit: Yes Status: Chronic (5) HTN (hypertension) Current Visit: Yes Status: Chronic Qualifiers: Hypertension type: essential hypertension Qualified Code(s): I10 - Essential (primary) hypertension - Plan Patient pending clinical improvement at this time. Will followup post procedure today. Has gone cardiac clearance for surgery with a history of mitral valve prolapse.
--- NOTE | 2018-10-11 12:58 | P.PN ---
Subjective Date of Service: 10/11/18 Chief Complaint: SBO Patient seen and examined at bedside with RN. Chart reviewed. Case discussed with general surgery. Currently patient is NPO. Status post colon resection with adhesion lysis. Doing well overall. No complaints to offer overnight. NG tube in place. Drainage 250 cc over 24 hr. Review of Systems 10-point ROS is otherwise unremarkable Physical Examination - Vital Signs Temperature: 98.5 F Blood Pressure: 161/63 Pulse: 95 Respirations: 14 Pulse Ox (%): 99 - Physical Exam General: Alert, In no apparent distress, Other (NG tube in place) HEENT: Atraumatic, PERRLA, EOMI Neck: Supple, JVD not distended Respiratory: Clear to auscultation bilaterally, Normal air movement Cardiovascular: Regular rate/rhythm, Normal S1 S2 Gastrointestinal: Normal bowel sounds, No tenderness Musculoskeletal: No tenderness Integumentary: No rashes Neurological: Normal speech, Normal tone, Normal affect Lymphatics: No axilla or inguinal lymphadenopathy - Studies Medications List Reviewed: Yes Assessment And Plan - Current Problems (Diagnosis) (1) SBO (small bowel obstruction) Current Visit: Yes Status: Acute Plan: Small-bowel obstruction with nausea and vomiting initially. -unresolved small bowel obstruction after NG tube and NPO status -general surgery consulted. Recommended patient get a ex lap with possible colon resection -currently status post exploratory laparotomy with colon resection and lysis of adhesion POD 1. -currently NPO with NG tube and IV fluids -has not passed any flatulence at this time. -for follow up with general surgery for further recommendations. -Keep NPO at this time until bowel function can be established (2) H/O colectomy Current Visit: Yes Status: Chronic Plan: History of colectomy in [place] more than 5 years ago. -currently status post colon resection as well (3) COPD (chronic obstructive pulmonary disease) Current Visit: Yes Status: Chronic Plan: COPD stable at this time. -DuoNeb, nasal cannula at this time Qualifiers: COPD type: chronic bronchitis (4) Dyslipidemia Current Visit: Yes Status: Chronic (5) HTN (hypertension) Current Visit: Yes Status: Chronic Qualifiers: Hypertension type: essential hypertension Qualified Code(s): I10 - Essential (primary) hypertension - Plan Patient pending clinical improvement at this time. Doing well overall postprocedure. Currently is NPO with NG tube draining 250 cc over last 24 hr. Denies having nausea vomiting or passing any flatulence. Encourage ambulation at this time. Will transfer patient out of the ICU to the regular floor. Anticipate improvement in next 24-48 hr. Will follow up with general surgery regarding recommendations on advancing diet. Discharge Plan: Home - Code Status/Comfort Care Code Status Assessed: Yes Critical Care: Yes
--- NOTE | 2018-10-11 14:01 | PN ---
Date of Progress Note: 10/11/2018 Diagnosis: Small bowel obstruction. Patient is doing well. No complaints. Physical Examination: Vital Signs: Stable. General: The patient is awake and alert. No distress. HEENT: Pupils anicteric. Neck: Supple. Chest: Clear. Abdomen: Soft and depressible. Intact surgical site. No bowel sounds yet. Extremities: Good capillary refill. Laboratory Data: Blood work shows WBC count is still pending. Potassium is 3.9. Plan: May take only pills if we plant the NG tube for half an hour, but no diet yet. Physical thera py for ambulation. Incentive spirometry. We going to check the CBC on her today. The patient may b e transferred to the floor if it is okay with the primary doctor. Continue the antibiotics. SCDscathy ilateral lower extremity. HM/MODL Voice ID: [id number] Report ID: [id number]
[2018-10-12] MEDS: METRONIDAZOLE 500mg IVPB 500 MG/100 ML BAG IV SCH ×3 (00:28→17:20)
[2018-10-12] MEDS: NA CHLORIDE 0.9% 1,000 ML IV SCH ×4 (00:29→21:17)
[2018-10-12 05:52] LABS: Absolute Lymphocytes (CBC) 0.4 K/uL (0.7-4.9); Absolute Monocytes 1.1 K/uL (0.1-1.3); Absolute Neutrophil 8.2 K/uL (1.8-8.0); Basophils % 0.1 % (0-1.3); Hematocrit 36.2 % (36.0-45.0); Lymphocytes % 3.9 % (15.3-44.8); MPV 11.8 fL (7.6-11.3); Monocytes % 11.7 % (3.3-12.3); RBC Red Blood Cell Count 4.02 M/uL (3.86-4.86)
[2018-10-12 06:32] LABS: ALT/SGPT 14 U/L (12-78); AST/SGOT 16 U/L (15-37); Albumin 2.3 g/dL (3.4-5.0); Alkaline Phosphatase 37 U/L (45-117); BUN Blood Urea Nitrogen 10 mg/dL (7-18); Bicarbonate 24 mmol/L (21-32); Bilirubin Total 0.5 mg/dL (0.2-1.0); Glucose Level 109 mg/dL (74-106); Protein, Total 5.1 g/dL (6.4-8.2); Sodium Level 143 mmol/L (136-145)
[2018-10-12 07:00] LABS: Potassium 2.9 mmol/L (3.5-5.1)
[2018-10-12 07:02] LABS: Urine White Blood Cell Casts OK
[2018-10-12 07:03] LABS: Blood Morphology Comment NOT SEEN (NOT SEEN); Platelet Estimate DECR; Platelets, Giant PRESENT
[2018-10-12] MEDS: KCL 20 MEQ/100 mL IVPB 20 MEQ/100 ML BAG IV SCH ×3 (08:49→13:06)
[2018-10-12] MEDS: LOSARTAN POTASSIUM 50 MG TABLET PO SCH (08:50)
[2018-10-12] MEDS: CIPROFLOXACIN 400mg IV 400 MG/200 ML BAG IV SCH ×2 (10:57→21:17)
--- NOTE | 2018-10-12 13:13 | P.PN ---
Subjective Date of Service: 10/12/18 Primary Care Provider: LES Lowe Chief Complaint: SBO Subjective: Improving (NG tube in place. Pain well controlled.) Physical Examination - Vital Signs Temperature: 98.4 F Blood Pressure: 167/72 Pulse: 82 Respirations: 16 Pulse Ox (%): 99 - Physical Exam General: Alert, In no apparent distress, Oriented x3, Cooperative HEENT: Atraumatic Neck: Supple Respiratory: Clear to auscultation bilaterally, Normal air movement Cardiovascular: Normal pulses, Regular rate/rhythm Gastrointestinal: Hypoactive, Non-distended, No tenderness, No masses, No rebound, No guarding Integumentary: No tenderness/swelling, No erythema, No warmth, No cyanosis Neurological: Normal speech, Normal strength at 5/5 x4 extr, Normal tone, Normal affect - Studies Medications List Reviewed: Yes Assessment & Plan Discharge Plan: Home Plan to discharge in: Greater than 2 days Physician Review Additional Text: Impression: Small-bowel obstruction status post Exploratory laparotomy, extensive intraabdominal lysis of adhesions, and small-bowel resection and anastomosis COPD, chronic Hyperlipidemia Hypertension Hypokalemia Plan: Small-bowel obstruction status post Exploratory laparotomy, extensive intraabdominal lysis of adhesions, and small-bowel resection and anastomosis: Continue to encourage incentive spirometer. Encourage ambulation. Spoke with surgery. NG tube to be clamped today. Await further recommendations. Will start DVT prophylaxis COPD, chronic: Will provide medication. Hyperlipidemia: Will hold medication at this time. Hypertension: Will provide medication IV. Hypokalemia: Will monitor and replace appropriately. Time Spent Managing Pts Care (In Minutes): 55
[2018-10-12] MEDS: ENOXAPARIN 40 MG/0.4 ML SQ SCH (17:20)
--- NOTE | 2018-10-12 19:55 | PN ---
Date of Progress Note: 10/12/2018 Diagnosis: Small bowel obstruction. The patient is doing better. No nausea, no vomiting. NG-tube will be removed today. Review of Systems: Ten points, otherwise, unremarkable. The patient believes she has some flatus. Physical Examination: General: The patient is awake and alert. No distress. Ambulating with assistance. Abdomen: Soft and depressible. Intact surgical site. Bowel sounds are diminished. Extremities: Good capillary refill. Laboratory Data: Blood work revealed WBC count of 9.7, hemoglobin of 12.5. Potassium 2.9, is being replaced. Plan: We going to discontinue the NG-tube. Ambulation and probably start diet tomorrow once she sta rts passing gas. ARMANDO/LEANDRO Voice ID: [id number] Report ID: [id number]
[2018-10-12] MEDS ORDERED: POTASSIUM CL SA 10 MEQ TAB PO ONE (22:42)
[2018-10-13] MEDS: METRONIDAZOLE 500mg IVPB 500 MG/100 ML BAG IV SCH ×3 (00:25→16:20)
[2018-10-13] MEDS: NA CHLORIDE 0.9% 1,000 ML IV SCH ×2 (05:17→16:20)
[2018-10-13 06:44] LABS: Absolute Lymphocytes (CBC) 0.4 K/uL (0.7-4.9); Absolute Monocytes 0.7 K/uL (0.1-1.3); Basophils % 0.1 % (0-1.3); Eosinophils % 0.1 % (0-4.4); Hematocrit 33.8 % (36.0-45.0); Lymphocytes % 4.7 % (15.3-44.8); Monocytes % 8.7 % (3.3-12.3); RBC Red Blood Cell Count 3.73 M/uL (3.86-4.86)
[2018-10-13] MEDS: PHENOL 1.4% ORAL SPRAY 180ML MM PRN (06:46)
[2018-10-13 07:10] LABS: ALT/SGPT 16 U/L (12-78); AST/SGOT 17 U/L (15-37); Albumin 2.4 g/dL (3.4-5.0); Alkaline Phosphatase 36 U/L (45-117); BUN Blood Urea Nitrogen 11 mg/dL (7-18); Bicarbonate 23 mmol/L (21-32); Bilirubin Total 0.5 mg/dL (0.2-1.0); Glucose Level 97 mg/dL (74-106); Potassium 3.3 mmol/L (3.5-5.1); Protein, Total 5.2 g/dL (6.4-8.2); Sodium Level 144 mmol/L (136-145)
[2018-10-13] MEDS: KCL 20 MEQ/100 mL IVPB 20 MEQ/100 ML BAG IV SCH ×2 (08:00→10:00)
[2018-10-13] MEDS: LOSARTAN POTASSIUM 50 MG TABLET PO SCH (08:29)
[2018-10-13] MEDS ORDERED: ALBUTEROL 2.5 MG/3 ML NEB SOL NEB PRN (09:53)
[2018-10-13] MEDS ORDERED: IPRATROPIUM BROM 0.5MG/2.5ML NEB PRN (09:53)
[2018-10-13] MEDS ORDERED: HYDRALAZINE HCL 20 MG/ML VIAL IV PRN (09:55)
--- NOTE | 2018-10-13 10:00 | P.PN ---
Subjective Date of Service: 10/13/18 Primary Care Provider: LES Lowe Chief Complaint: SBO Subjective: Other (Patient improved. Patient able to pass gas yesterday. Patient with slight confusion this morning. No significant pain, nausea.) Physical Examination - Vital Signs Temperature: 97.7 F Blood Pressure: 165/75 Pulse: 99 Respirations: 18 Pulse Ox (%): 91 - Physical Exam General: Alert, In no apparent distress, Cooperative, Other (Slight confusion noted. But cooperative) HEENT: Atraumatic Neck: Supple Respiratory: Clear to auscultation bilaterally, Normal air movement Cardiovascular: Normal pulses, Regular rate/rhythm Gastrointestinal: Normal bowel sounds, Hypoactive, No tenderness, No masses, No rebound, No guarding Musculoskeletal: No erythema, No tenderness, No warmth Integumentary: No tenderness/swelling, No erythema, No warmth, No cyanosis Neurological: Normal speech, Normal strength at 5/5 x4 extr, Normal tone - Studies Medications List Reviewed: Yes Assessment & Plan Discharge Plan: Home Plan to discharge in: 48 Hours Physician Review Additional Text: Impression: Complete Small-bowel obstruction status post Exploratory laparotomy, extensive intraabdominal lysis of adhesions, and small-bowel resection and anastomosis Confusion post operative COPD, chronic Hyperlipidemia Hypertension Hypokalemia Plan: Complete Small-bowel obstruction status post Exploratory laparotomy, extensive intraabdominal lysis of adhesions, and small-bowel resection and anastomosis: Patient with slight confusion today. Continue to encourage incentive spirometer. Encourage ambulation. Patient has noted passage of gas. Spoke with surgery this morning. NG tube no longer in place. Will provide clear liquid diet for the patient. Continue with DVT prophylaxis. Will continue to reassess. Likely home in the next 48 hr. Confusion postop: Mild. Will monitor closely. No fever noted. COPD, chronic: Will start Brovana and albuterol. Will have respiratory maintain sats above 90%. Hyperlipidemia: Will continue to hold medication. Will verify home medication.. Hypertension: Will restart losartan. Will provide IV medication as needed. Hypokalemia: Will monitor and replace appropriately. Time Spent Managing Pts Care (In Minutes): 55
[2018-10-13] MEDS: CIPROFLOXACIN 400mg IV 400 MG/200 ML BAG IV SCH ×2 (11:19→22:07)
[2018-10-13] MEDS: ENOXAPARIN 40 MG/0.4 ML SQ SCH (16:20)
[2018-10-13] MEDS: METOPROLOL TAR 25 MG TAB PO SCH (17:03)
[2018-10-13] MEDS: ARFORMOTEROL TARTRATE 15 MCG/2 ML VIAL.NEB NEB SCH (20:00)
--- NOTE | 2018-10-13 20:53 | PN ---
Date of Progress Note: 10/13/2018 Diagnoses: 1.Status post laparotomy. 2.Small-bowel resection and anastomosis for small bowel obstruction. History Of Present Illness: Patient is doing great, tolerating clear diet, ambulating with assistanc e. No fever. No shortness of breath. No chest pain. Passing flatus, having bowel movement. Physical Examination: Abdomen: Soft and depressible. No guarding. Bowel sounds positive. Intact incisions. Extremities: No calf tenderness. Plan: We are going to advance diet. Then if she tolerates diet today by tomorrow morning she contin ued tolerating diet, she will be cleared from the surgical standpoint to be discharged home. With th e condition, she does not do heavy lifting and she will follow up in my office in 1 week and she has to call for appointment [phone]. ARMANDO/LEANDRO Voice ID: [id number] Report ID: [id number]
[2018-10-13] MEDS ORDERED: POTASSIUM CL SA 10 MEQ TAB PO ONE (23:00)
--- NOTE | 2018-10-14 00:14 | PN ---
Date of Progress Note: 10/11/2018 Ms. Chase is 88, had come in with a small-bowel obstruction. Dr. Rey cleared her for surgery o n 10/10/2018. Dr. Chase performed the surgery. She did well postoperatively. She has a history of COPD and hypertension. There is no evidence of congestive heart failure or arrhythmia on telemetr y. We will sign off her case. GÓMEZ/LEANDRO Voice ID: [id number] Report ID: [id number]
[2018-10-14] MEDS: METRONIDAZOLE 500mg IVPB 500 MG/100 ML BAG IV SCH ×2 (00:15→09:15)
[2018-10-14] MEDS: NA CHLORIDE 0.9% 1,000 ML IV SCH ×2 (00:16→02:49)
[2018-10-14] MEDS: METOPROLOL TAR 25 MG TAB PO SCH (05:43)
[2018-10-14 06:59] LABS: Absolute Lymphocytes (CBC) 0.5 K/uL (0.7-4.9); Absolute Monocytes 0.6 K/uL (0.1-1.3); Absolute Neutrophil 5.9 K/uL (1.8-8.0); Basophils % 0.1 % (0-1.3); Eosinophils % 0.1 % (0-4.4); Lymphocytes % 7.1 % (15.3-44.8); MPV 12.3 fL (7.6-11.3); RBC Red Blood Cell Count 4.14 M/uL (3.86-4.86)
[2018-10-14 07:29] LABS: ALT/SGPT 16 U/L (12-78); AST/SGOT 16 U/L (15-37); Albumin 2.6 g/dL (3.4-5.0); Alkaline Phosphatase 36 U/L (45-117); BUN Blood Urea Nitrogen 8 mg/dL (7-18); Bicarbonate 25 mmol/L (21-32); Bilirubin Total 0.5 mg/dL (0.2-1.0); Glucose Level 130 mg/dL (74-106); Protein, Total 5.7 g/dL (6.4-8.2); Sodium Level 138 mmol/L (136-145)
[2018-10-14] MEDS: ARFORMOTEROL TARTRATE 15 MCG/2 ML VIAL.NEB NEB SCH (07:30)
[2018-10-14 07:47] LABS: Potassium 2.8 mmol/L (3.5-5.1)
[2018-10-14 07:49] LABS: Blood Morphology Comment NOT SEEN (NOT SEEN); Platelet Estimate ADEQ; Urine White Blood Cell Casts DIFF
[2018-10-14 07:50] LABS: Platelets, Giant MODERATE
[2018-10-14] MEDS ORDERED: VENLAFAXINE HCL XR 37.5MG CAP PO SCH (09:00)
[2018-10-14] MEDS: KCL 20 MEQ/100 mL IVPB 20 MEQ/100 ML BAG IV SCH ×2 (09:14→10:00)
[2018-10-14] MEDS: LOSARTAN POTASSIUM 50 MG TABLET PO SCH (09:15)
[2018-10-14] MEDS ORDERED: POTASSIUM CL SA 10 MEQ TAB PO ONE (11:10)
--- NOTE | 2018-10-14 11:12 | P.DS ---
Admission Date: 10/06/18 Discharge Date: 10/14/18 Primary Care Provider: LES Lowe Disposition: ROUTINE DISCHARGE Discharge Condition: GOOD Reason for Admission: SBO Consultations: Cardiology-Dr. Rogers Surgery-Dr. Chase Procedures: CT scan: COMPARISON: None. TECHNIQUE: Biphasic, helical CT imaging of the abdomen and pelvis was performed following 100 ml non-ionic IV contrast. Oral contrast was given. All CT scans are performed using dose optimization technique as appropriate and may include automated exposure control or mA/KV adjustment according to patient size. FINDINGS: No suspicious findings in the lung bases. The liver, spleen, and pancreas show no suspicious findings. Gallbladder is absent. Mild dilatation of biliary tree within normal limits for a post cholecystectomy patient. Renal function is symmetric. No pyelonephritis, suspicious renal mass or other acute renal parenchymal process seen. Both renal pelves are dilated. Function is not delayed in these are probably normal variant extrarenal pelves or congenital UPJ obstructions. These are not regarded as significant in the acute setting. Ureters do not appear to be dilated. Urinary bladder is distended. Hyperdensity along the left posterior wall of the bladder is probably bladder calculi. Contrast is possible if the patient was administered a test dosage. No wall thickening or mass of the bladder. No adrenal abnormalities. Fluid-filled nondilated stomach noted. No gastric wall thickening or mass. Multiple dilated small bowel loops are present up to 3.2 cm in diameter. There is an abrupt transition in the posterior floor the pelvis. At the transition site there is no discrete mass identifiable. Internal hernia or more likely adhesions would be the etiology. Distal to the transition point the small bowel is fully decompressed. Air and stool are present throughout the colon. No acute colon process seen. No findings to elevate probability of ischemic bowel. No free air or pneumatosis. Small quantity of reactive free fluid is seen. No bulky lymphadenopathy or suspicious soft tissue mass. Prominent disc and bony degenerative changes are present with right convex rotoscoliosis. IMPRESSION: Mechanical small bowel obstruction pattern with an abrupt transition in the mid small bowel along the posterior pelvic floor. No mass at the transition site. Adhesion would be the most likely etiology. No free air, abscess or surgically emergent finding. Patient does have a small quantity of reactive free intraperitoneal fluid. Surgery: Date of Procedure: 10/06/2018 Surgeon: Antonio Chase MD Preoperative Diagnosis: Obstruction. Postoperative Diagnosis: Obstruction. Procedures: Exploratory laparotomy, extensive intraabdominal lysis of adhesions , and small-bowel resection and anastomosis. Estimated Blood Loss: Less than 50 cc. Anesthesia: General. Specimen: Small bowel. Findings: The patient has multiple extensive adhesions inside abdomen with kink of the small bowel causing bowel obstruction. The area of the kink looked like it has some chronic stricture. For that reason, it was resected. Medical Problem List: Complete Small-bowel obstruction status post Exploratory laparotomy, extensive intraabdominal lysis of adhesions, and small-bowel resection and anastomosis Confusion, resolved post operative COPD, chronic Hyperlipidemia Hypertension Hypokalemia Depression with anxiety Chronic vertigo Brief History of Present Illness: 88-year-old female presented to emergency room with severe abdominal pain. Patient with multiple prior surgeries. Patient found to have complete small-bowel obstruction. Patient was admitted for treatment. Surgery consulted. Hospital Course: Patient presented with severe abdominal pain. Patient with history of prior multiple abdominal surgeries. Patient found to have complete small-bowel obstruction. Patient seen and evaluated by surgery. Surgical intervention was required had exploratory laparotomy, extensive intractable adhesions and small- bowel resection with anastomosis. Patient tolerated the procedure well. At discharge, patient without abdominal pain, nausea, and vomiting at discharge. Patient tolerating soft GI diet. At discharge she will continue with Cipro 500 mg 1 pill twice daily for 7 days and soft GI diet. No heavy lifting, pushing or pulling. Patient will need to follow up with surgery in 1 week. Patient is originally from [place]. Patient will need a follow up with surgery to determine when she can go back. Recommend no further use of nonsteroidal anti- inflammatories may use Tylenol as needed for pain. Patient may benefit with stool softener at discharge. Patient with chronic COPD. This remained stable. Patient will continue with her medication-Symbicort 2 puffs twice daily and Pro air 2 puffs 3 times a day as needed for shortness of breath.. Patient may follow up with pulmonology in the area to continue her care. Patient has hyperlipidemia. At discharge she will continue with Lipitor once daily. Patient has hypertension. Medications adjusted in her stay. Patient will continue with losartan 25 mg daily. Patient will also continue with metoprolol 50 mg 1 pill twice daily. Recommendation is to maintain blood pressures less 150/80. Further adjustment can be done by her PCP. Patient had hypokalemia. Potassium replaced. Recommendation to recheck Lab- BMP in 1 week to monitor progress. Patient has depression with anxiety. Patient will continue with Effexor XR 37.5 mg daily. Patient may have underlying GERD. Patient continue with Pepcid 20 mg 1 pill twice daily. Patient with chronic vertigo. Patient will continue with her prior medication of Valium 2 mg twice daily as needed for dizziness. Vital Signs/Physical Exam: Temp Pulse Resp BP Pulse Ox 98.2 F 88 20 146/77 H 97 10/14/18 08:00 10/14/18 08:00 10/14/18 08:00 10/14/18 08:00 10/14/18 08:00 General: Alert, In no apparent distress, Oriented x3, Cooperative HEENT: Atraumatic Neck: Supple Respiratory: Clear to auscultation bilaterally, Normal air movement Cardiovascular: Normal pulses, Regular rate/rhythm Gastrointestinal: Normal bowel sounds, Soft and benign, Non-distended, No tenderness, No masses, No rebound, No guarding Musculoskeletal: No erythema, No tenderness, No warmth Integumentary: No tenderness/swelling, No erythema, No warmth, No cyanosis Neurological: Normal speech, Normal strength at 5/5 x4 extr, Normal tone, Normal affect Laboratory Data at Discharge: WBC 7.1 K/uL (4.3-10.9) 10/14/18 06:21 Hgb 12.8 g/dL (12.0-15.0) 10/14/18 06:21 Hct 37.0 % (36.0-45.0) 10/14/18 06:21 Plt Count 222 K/uL (152-406) D 10/14/18 06:21 Sodium 138 mmol/L (136-145) 10/14/18 06:21 Potassium 2.8 mmol/L (3.5-5.1) L* 10/14/18 06:21 BUN 8 mg/dL (7-18) 10/14/18 06:21 Creatinine 0.35 mg/dL (0.55-1.3) L 10/14/18 06:21 Glucose 130 mg/dL (74-106) H 10/14/18 06:21 Total Bilirubin 0.5 mg/dL (0.2-1.0) 10/14/18 06:21 AST 16 U/L (15-37) 10/14/18 06:21 ALT 16 U/L (12-78) 10/14/18 06:21 Alkaline Phosphatase 36 U/L (45-117) L 10/14/18 06:21 Lipase 188 U/L (73-393) 10/06/18 10:28 Home Medications: Budesonide/Formoterol Fumarate [Symbicort 160-4.5 Mcg Inhaler] 2 puff .ROUTE BID 10/06/18 Diazepam [Valium] 2 mg PO BID PRN 10/06/18 Losartan Potassium 1 tab PO DAILY 10/06/18 Venlafaxine HCl [Effexor XR] 1 tab PO DAILY 10/06/18 Albuterol Sulfate [Proair Hfa] 8.5 gm IH TID PRN #1 hfa.aer.ad 10/14/18 Ciprofloxacin HCl [Cipro 500 MG Tablet] 500 mg PO BID #14 tab 10/14/18 Famotidine [Pepcid] 20 mg PO BID #60 tab 10/14/18 Metoprolol Tartrate [Lopressor*] 25 mg PO BID 6AM 6PM #60 tab 10/14/18 New Medications: Albuterol Sulfate [Proair Hfa] 8.5 gm IH TID PRN #1 hfa.aer.ad PRN Reason: Shortness Of Breath Ciprofloxacin HCl [Cipro 500 MG Tablet] 500 mg PO BID #14 tab Famotidine [Pepcid] 20 mg PO BID #60 tab Metoprolol Tartrate [Lopressor*] 25 mg PO BID 6AM 6PM #60 tab Patient Discharge Instructions: 1. Patient will need a follow up with a PCP in 1 week to follow up this hospitalization. 2. Patient presented with severe abdominal pain. Patient with history of prior multiple abdominal surgeries. Patient found to have complete small-bowel obstruction. Patient seen and evaluated by surgery. Surgical intervention was required had exploratory laparotomy, extensive intractable adhesions and small-bowel resection with anastomosis. Patient tolerated the procedure well. At discharge, patient without abdominal pain, nausea, and vomiting at discharge. Patient tolerating soft GI diet. At discharge she will continue with Cipro 500 mg 1 pill twice daily for 7 days and soft GI diet. No heavy lifting, pushing or pulling. Patient will need to follow up with surgery in 1 week. Patient is originally from [place]. Patient will need a follow up with surgery to determine when she can go back. Recommend no further use of nonsteroidal anti-inflammatories may use Tylenol as needed for pain. Patient may benefit with stool softener at discharge. 3. Patient with chronic COPD. This remained stable. Patient will continue with her medication-Symbicort 2 puffs twice daily and Pro air 2 puffs 3 times a day as needed for shortness of breath.. Patient may follow up with pulmonology in the area to continue her care. 4. Patient has hyperlipidemia. At discharge she will continue with Lipitor once daily. 5. Patient has hypertension. Medications adjusted in her stay. Patient will continue with losartan 25 mg daily. Patient will also continue with metoprolol 50 mg 1 pill twice daily. Recommendation is to maintain blood pressures less 150/80. Further adjustment can be done by her PCP. 6. Patient had hypokalemia. Potassium replaced. Recommendation to recheck Lab-BMP in 1 week to monitor progress. 7. Patient has depression with anxiety. Patient will continue with Effexor XR 37.5 mg daily. 8. Patient may have underlying GERD. Patient continue with Pepcid 20 mg 1 pill twice daily. 9. Patient with chronic vertigo. Patient will continue with her prior medication of Valium 2 mg twice daily as needed for dizziness. Diet: GI soft Activity: No lifting more than 10 lbs Followup: Antonio Chase MD [ACTIVE - CAN ADMIT] - Time spent managing pt's care (in minutes): 55
[2018-10-14] MEDS: CIPROFLOXACIN 400mg IV 400 MG/200 ML BAG IV SCH (12:31)
--- NOTE | 2018-10-14 19:43 | PN ---
Date of Progress Note: 10/14/2018 Diagnoses: Status post laparotomy bowel resection for bowel obstruction. History: The patient is doing good, passing flatus. No shortness of breath. No chest pain. No fev er. Tolerating diet. Objective: General: The patient is awake and alert. No distress. Chest: Clear. Abdomen: Soft and depressible. Intact surgical site. Bowel sounds positive. Extremities: Good capillary refill. Plan: Advance diet if it is felt she is okay medically, then she will be able to go home. Advised t o follow up with my office in 1 week. Call for appointment [phone]. No heavy lifting. May take a shower with the dressings off. ARMANDO/LEANDRO Voice ID: [id number] Report ID: [id number]
== END 2018-10-14 16:21 | disposition home or self-care (01) | DRG 331 ==
LOC: ER 09:42 → ERHOLD 12:14 → 2ND 14:17 → 3RD-ICU 10-10 13:28 → 2ND 10-11 20:53
PROVIDERS: ADMIT Family Medicine; ATTEND Family Medicine
PROC: 0D9670Z Drainage of Stomach with Drainage Device, Via Natural or Artificial Opening (ICD-10-PCS; 2018-10-06)
PROC: 0DN80ZZ Release Small Intestine, Open Approach (ICD-10-PCS; 2018-10-10)
PROC: 0DT80ZZ Resection of Small Intestine, Open Approach (ICD-10-PCS; principal; 2018-10-10 09:45)
DX: K56.52 Intestinal adhesions [bands] with complete obstruction (principal); J44.9 Chronic obstructive pulmonary disease, unspecified; E78.5 Hyperlipidemia, unspecified; I10 Essential (primary) hypertension; E87.6 Hypokalemia; F32.9 Major depressive disorder, single episode, unspecified; F41.9 Anxiety disorder, unspecified; R42 Dizziness and giddiness; R41.0 Disorientation, unspecified; K21.9 Gastro-esophageal reflux disease without esophagitis; Z88.2 Allergy status to sulfonamides; Z88.8 Allergy status to other drugs, medicaments and biological substances; I34.1 Nonrheumatic mitral (valve) prolapse; M54.10 Radiculopathy, site unspecified; M54.40 Lumbago with sciatica, unspecified side; D69.2 Other nonthrombocytopenic purpura; Z90.49 Acquired absence of other specified parts of digestive tract
CPT/HCPCS: 36415; 74018; 74177; 80048; 80053; 80076; 81003; 83690; 84132; 85025; 88307; 93005; 94640; 96361; 96365; 96367; 96375; 97116; 97163; 97530; 99285; J0360; J0744; J1650; J2175; J2250; J2405; J2704; J2710; J3010; J7030; J7605; Q9967